=== PATIENT | male | born 1970 | race Caucasian/White ===

== ENCOUNTER 2017-05-13 19:28 | Inpatient (IN) | payer BC, OTHER ==
[~2017-05-13] VITALS: Ht 172.7 cm; Wt 121.2 kg
[~2017-05-13 19:28] MED LIST: CLTP PO; MAGN400T6 PO; OXYC-57 PO
--- NOTE | 2017-05-13 20:35 | EMERGENCY ROOM VISIT NOTE ---
History Report prepared by Kandice: Hui Nixon Under the Supervision of: Dr. Kena Gonzalez D.O. First contact with patient: 19:56 Chief Complaint: FLU LIKE SX Stated Complaint: FATIGUE,FEVER,HEADACHE History of Present Illness The patient is a 47 year old male who presents to the Emergency Room with complaints of a persistent illness that began four days ago. He currently rates his discomfort as a 2/10 in severity. The patient reports that for the past several decades he has been dealing with electrolyte problems. He states that he has followed with doctors and reports a partial diagnosis of probable [place]'s Disease. The patient states that he has been treating the disease with magnesium and calcium supplements, noting that his problems gradually improved. The patient states that on Saturday he was outside in the sun for 30- 60 minutes and states that he started feeling ill. He states that he developed weakness, a headache, and diffuse muscle aches. The patient states that he attributed his symptoms to a mismanagement of his electrolytes. He states that he still noticed a headache and neck stiffness. The patient states that he noticed a low-grade fever of 99.9 degrees Fahrenheit. He reports that Saturday his fever increased to 101.7 degrees Fahrenheit, but noticed an improvement in his electrolytes. The patient states that today he noticed his fever climb to 101.9 degrees Fahrenheit and then 102.8 degrees Fahrenheit just prior to arrival. He states that his muscle aches have improved, but additionally notes a tickle in his throat, cough, right ear ache, nausea, and diarrhea today. The patient states that he has had multiple recent mosquito bites. He states that he had a tick bite two years ago, but denies any recently. The patient denies any sick contacts. He denies any rash, urinary symptoms, vomiting, melena, or hematochezia. Source of History: patient Onset: four days ago Position: other (global) Symptom Intensity: 2/10 Quality: other (illness) Timing: other (persistent) Associated Symptoms: + fevers, + cough, + nausea, + diarrhea, + weakness, No vomiting, No melena, No hematochezia, No urinary symptoms Note: Associated Symptoms: tickle in throat, right ear ache, muscle aches, neck stiffness Review of Systems See HPI for pertinent positives & negatives. A total of 10 systems reviewed and were otherwise negative. Past Medical & Surgical Medical Problems: (1) Hypertension (2) Osteoporosis (3) SIRS (systemic inflammatory response syndrome) Surgical Problems: (1) H/O wisdom tooth extraction (2) History of appendectomy Family History Diabetes mellitus Gallbladder disease Heart disease Lung disease Social History Smoking Status: Never Smoker Smokeless Tobacco Use: No Marital Status: single Current/Historical Medications Scheduled Calcium Carbonate-Cholecalcife (Calcium 600+D3 600-800 mg-Unit), 1 TAB PO DAILY Magnesium Oxide (Mg Supplement (Magnesium), 250 MG PO BID Allergies Coded Allergies: Atenolol (Verified Adverse Reaction, Intermediate, Weight loss, difficulty breathing, 05/13/17) Physical Exam Vital Signs Date Time Temp Pulse Resp B/P (MAP) Pulse Ox O2 Delivery O2 Flow Rate FiO2 05/14/17 02:12 37.4 05/14/17 02:01 168/113 05/14/17 01:56 104 23 96 05/14/17 01:41 99 16 96 05/14/17 01:26 107 17 98 05/14/17 01:11 102 21 05/14/17 01:02 160/96 05/14/17 00:56 101 18 95 05/14/17 00:51 102 17 95 05/14/17 00:36 104 16 96 05/14/17 00:34 106 05/14/17 00:31 170/108 05/14/17 00:21 106 25 96 05/14/17 00:06 105 16 97 05/14/17 00:01 177/107 05/13/17 23:51 112 19 180/110 95 05/13/17 23:30 185/114 05/13/17 23:26 120 19 185/114 95 Room Air 05/13/17 23:21 117 20 96 05/13/17 23:06 118 29 96 05/13/17 23:01 211/117 05/13/17 22:51 117 27 99 05/13/17 22:36 114 25 99 05/13/17 22:31 204/117 05/13/17 22:21 114 38 100 05/13/17 22:09 39.3 05/13/17 22:06 114 25 99 05/13/17 22:01 199/118 05/13/17 21:58 112 29 100 05/13/17 21:35 116 20 191/115 97 Room Air 05/13/17 21:34 191/115 05/13/17 20:59 120 05/13/17 20:59 119 20 190/110 97 Room Air 05/13/17 20:57 190/110 05/13/17 19:52 39.1 133 20 205/110 94 Room Air Physical Exam GENERAL: alert, well appearing, well nourished, no distress, non-toxic EYE EXAM: normal conjunctiva, PERRL and EOM's grossly intact OROPHARYNX: no exudate, no erythema, lips, buccal mucosa, and tongue normal and mucous membranes are really dry EARS: Small amount of fluid behind right TM and partial obstruction of TM by cerumen. NECK: supple, no nuchal rigidity, no adenopathy, non-tender LUNGS: Clear to auscultation. Normal chest wall mechanics HEART: no murmurs, S1 normal and S2 normal ABDOMEN: abdomen soft, non-tender, normo-active bowel sounds, no masses, no rebound or guarding. BACK: Back is symmetrical on inspection and there is no deformity, no midline tenderness, no CVA tenderness. SKIN: Scattered area of excoriation consistent with insect bites and scratching. UPPER EXTREMITIES: upper extremities are grossly normal. LOWER EXTREMITIES: No pitting edema. NEURO EXAM: Normal sensorium, cranial nerves II-XII grossly intact, normal speech, no gross weakness of arms, no gross weakness of legs. Medical Decision & Procedures ER Provider Diagnostic Interpretation: Radiology results have been interpreted by the radiologist and reviewed by me. CHEST 2 VIEWS ROUTINE HISTORY: cough, fever COMPARISON: None. FINDINGS: The lungs are clear. Cardiac silhouette is normal in size. No pleural effusions. No pneumothorax. IMPRESSION: No acute process. Electronically signed by: Adama Asencio M.D. 05/13/2017 9:30 PM Dictated Date/Time: 05/13/2017 9:[address] ABDOMEN AND PELVIS: Outside infiltration of the liver. The gallbladder, pancreas, adrenal glands, spleen, and kidneys show no substantial abnormality. No dilated loop of bowel. Remainder of examination shows no evidence of an acute inflammatory process. Radiologist: Nazario Matta MD Study ready at 2354 and initial results transmitted at 0004 Laboratory Results 05/13/17 20:48 Red Blood Count 5.77, Mean Corpuscular Volume 86.7, Mean Corpuscular Hemoglobin 29.1, Mean Corpuscular Hemoglobin Concent 33.6, Mean Platelet Volume 9.0, Neutrophils (%) (Auto) 85.1, Lymphocytes (%) (Auto) 9.6, Monocytes (%) (Auto) 4.7, Eosinophils (%) (Auto) 0.0, Basophils (%) (Auto) 0.3, Neutrophils # (Auto) 6.18, Lymphocytes # (Auto) 0.70, Monocytes # (Auto) 0.34, Eosinophils # (Auto) 0.00, Basophils # (Auto) 0.02 05/13/17 20:48 Test 05/13/17 20:48 05/13/17 20:58 05/13/17 21:25 05/13/17 23:55 White Blood Count 7.26 K/uL (4.8-10.8) Red Blood Count 5.77 M/uL (4.7-6.1) Hemoglobin 16.8 g/dL (14.0-18.0) Hematocrit 50.0 % (42-52) Mean Corpuscular Volume 86.7 fL (80-100) Mean Corpuscular Hemoglobin 29.1 pg (25-34) Mean Corpuscular Hemoglobin Concent 33.6 g/dl (32-36) Platelet Count 194 K/uL (130-400) Mean Platelet Volume 9.0 fL (7.4-10.4) Neutrophils (%) (Auto) 85.1 % Lymphocytes (%) (Auto) 9.6 % Monocytes (%) (Auto) 4.7 % Eosinophils (%) (Auto) 0.0 % Basophils (%) (Auto) 0.3 % Neutrophils # (Auto) 6.18 K/uL (1.4-6.5) Lymphocytes # (Auto) 0.70 K/uL (1.2-3.4) Monocytes # (Auto) 0.34 K/uL (0.11-0.59) Eosinophils # (Auto) 0.00 K/uL (0-0.5) Basophils # (Auto) 0.02 K/uL (0-0.2) RDW Standard Deviation 40.2 fL (36.4-46.3) RDW Coefficient of Variation 12.6 % (11.5-14.5) Immature Granulocyte % (Auto) 0.3 % Immature Granulocyte # (Auto) 0.02 K/uL (0.00-0.02) Prothrombin Time 11.2 SECONDS (9.0-12.0) Prothromb Time International Ratio 1.0 (0.9-1.1) Anion Gap 9.0 mmol/L (3-11) Est Creatinine Clear Calc Drug Dose 96.0 ml/min Estimated GFR () 83.0 Estimated GFR (Non- 71.6 BUN/Creatinine Ratio 10.3 (10-20) Lactic Acid Level 1.0 mmol/L (0.4-2.0) Calcium Level 8.8 mg/dl (8.5-10.1) Magnesium Level 2.3 mg/dl (1.8-2.4) Total Bilirubin 1.3 mg/dl (0.2-1) Aspartate Amino Transf (AST/SGOT) 34 U/L (15-37) Alanine Aminotransferase (ALT/SGPT) 51 U/L (12-78) Alkaline Phosphatase 81 U/L (45-117) Total Creatine Kinase 116 U/L (39-308) Troponin I < 0.015 ng/ml (0-0.045) Total Protein 7.9 gm/dl (6.4-8.2) Albumin 3.8 gm/dl (3.4-5.0) Globulin 4.1 gm/dl (2.5-4.0) Albumin/Globulin Ratio 0.9 (0.9-2) Lipase 109 U/L (73-393) Thyroid Stimulating Hormone (TSH) 2.010 uIu/ml (0.300-4.500) Monoscreen NEG (NEG) Lyme Disease IgG Antibody POS (NEG) Influenza Type A Antigen Neg for Influ A (NEG) Influenza Type B Antigen Neg for Influ B (NEG) Urine Color DK YELLOW Urine Appearance CLEAR (CLEAR) Urine pH 5.5 (4.5-7.5) Urine Specific [place] 1.019 (1.000-1.030) Urine Protein TRACE (NEG) Urine Glucose (UA) NEG (NEG) Urine Ketones 3+ (NEG) Urine Occult Blood NEG (NEG) Urine Nitrite NEG (NEG) Urine Bilirubin NEG (NEG) Urine Urobilinogen NEG (NEG) Urine Leukocyte Esterase NEG (NEG) Urine WBC (Auto) 1-5 /hpf (0-5) Urine RBC (Auto) 0-4 /hpf (0-4) Urine Hyaline Casts (Auto) 0 /lpf (0-5) Urine Epithelial Cells (Auto) 0-5 /lpf (0-5) Urine Bacteria (Auto) NEG (NEG) Laboratory results per my review. Medications Administered Medications (Trade) Dose Ordered Sig/Bennett Route Start Time Stop Time Status Last Admin Dose Admin Sodium Chloride 1,000 ml @ 999 mls/hr Q1H1M STAT IV 05/13/17 20:36 05/13/17 21:36 DC 05/13/17 20:58 999 MLS/HR Sodium Chloride 1,000 ml @ 999 mls/hr Q1H1M STAT IV 05/13/17 21:41 05/13/17 22:41 DC 05/13/17 22:07 999 MLS/HR Ketorolac Tromethamine (Toradol Inj) 30 mg NOW STAT IV 05/13/17 22:24 05/13/17 22:26 DC 05/13/17 22:57 30 MG Acetaminophen (Tylenol Tab) 1,000 mg NOW STAT PO 05/13/17 22:24 05/13/17 22:26 DC 05/13/17 22:56 1,000 MG Sodium Chloride 1,000 ml @ 999 mls/hr Q1H1M STAT IV 05/13/17 23:18 05/14/17 00:18 DC 05/13/17 23:18 999 MLS/HR Doxycycline Hyclate (Vibramycin Cap) 100 mg ONE ONCE PO 05/14/17 01:00 05/14/17 01:01 DC 05/14/17 01:26 100 MG ECG Indication: weakness, other (fever) Rate (beats per minute): 116 Rhythm: sinus tachycardia Findings: no acute ischemic change, other (normal axis, normal intervals) ED Course 2021: The patient was evaluated in room B9. A complete history and physical exam was performed. 2035: Ordered Sodium Chloride 1000 ml @ 999 mls/hr IV. 2140: Ordered Sodium Chloride 1000 ml @ 999 mls/hr IV. 2205: I reevaluated the patient and he still has a fever and is still tachycardic. 4: Ordered Tylenol Tab 1000 mg PO, Toradol Inj 30 mg IV. 2314: I reevaluated the patient and he is still tachycardic and increasing abdominal pain. I updated the patient at this time on results. He will have a CT scan. Patient states he was previously told that he had borderline high blood pressure and his family doctor wanted to start him on medication. He refused and since losing his insurance had not followed up with the family doctor since. 2318: Ordered Sodium Chloride 1000 ml @ 999 mls/hr IV. 0000: I reevaluated the patient and he is resting. I discussed the exam findings with him and I discussed the treatment plan. He verbalized complete understanding and agreement. He is going to be evaluated for further treatment. 0058: I discussed the patients case with LISSETH Call. He will evaluate the patient for further treatment. 0100: Ordered Vibramycin Cap 100 mg PO. Medical Decision Differential diagnosis: Etiologies such as viral syndrome, otitis, pharyngitis, pneumonia, influenza, meningitis, urinary tract infection, sepsis, bacteremia, as well as others were entertained. Medication Reconciliation: I attest that I have personally reviewed the patient' s current medication list. Blood pressure screening: Patient was found to have an elevated blood pressure and was referred to their primary doctor for recheck and further treatment. Patient with persistent tachycardia and hypertension despite 3 L of IV fluids. Patient states myalgias/arthralgias are slightly improved, however still not feeling well. No evidence of bacteremia/sepsis, however given fever and tachycardia, cultures added as a precaution. Patient likely exposed to Lyme or had live infection some point, although he is not aware of this. Patient will be started on doxycycline as a precaution area given complaints of nausea and mild abdominal pain imaging of the abdomen and pelvis added which did not reveal any acute pathology. Clinically patient's level dehydration was improved following IV fluids and patient was tolerating sips of by mouth. Patient with no other focal findings, no neuro deficits, did not feel patient warranted LP for meningitis/encephalitis. No pulmonary pathology or urinary infection found. Doubt bacteremia/sepsis. Consults Time Called: 002 Consulting Physician: LISSETH Call I discussed the patients case with LISSETH Call. He will evaluate the patient for further treatment. Impression Primary Impression: Dehydration Additional Impressions: Tachycardia Hypertension Myalgia SIRS (systemic inflammatory response syndrome) Scribe Attestation The scribe's documentation has been prepared under my direction and personally reviewed by me in its entirety. I confirm that the note above accurately reflects all work, treatment, procedures, and medical decision making performed by me. Departure Information Dispostion Being Evaluated By Hospitalist Referrals Iggy Leblanc Jr,D.O. (PCP) Problem Qualifiers Additional Impressions: Hypertension Hypertension type: essential hypertension Qualified Codes: I10 - Essential ( primary) hypertension
[2017-05-13] MEDS ORDERED: SODIUM CHLORIDE 0.9% 1000ML 1,000 ML IV STA ×3 (20:36→23:18)
[2017-05-13] MEDS ORDERED: MAGN250T8 PO (20:53)
[2017-05-13] MEDS ORDERED: CALC-449 PO (20:53)
[2017-05-13 21:02] LABS: BASO % 0.3 %; BASO ABS # 0.02 K/uL (0-0.2); COMPLETE YES; IG% 0.3 %; LYMPH % 9.6 %; MEAN CELL VOLUME 86.7 fL (80-100); MEAN CORPUSCULAR HEMOGLOBIN 29.1 pg (25-34); MEAN CORPUSCULAR HGB CONC 33.6 g/dl (32-36); MONO % 4.7 %; NEUT % 85.1 %; PLATELET COUNT 194 K/uL (130-400); RED BLOOD COUNT 5.77 M/uL (4.7-6.1); WHITE BLOOD COUNT 7.26 K/uL (4.8-10.8)
[2017-05-13 21:19] LABS: ALT/SGPT 51 U/L (12-78); BLOOD UREA NITROGEN 12 mg/dl (7-18); BUN/CREATININE RATIO 10.3 (10-20); CALCIUM 8.8 mg/dl (8.5-10.1); CARBON DIOXIDE 25 mmol/L (21-32); CHLORIDE 101 mmol/L (98-107); GLUCOSE 91 mg/dl (70-99); MAGNESIUM 2.3 mg/dl (1.8-2.4); POTASSIUM 4.1 mmol/L (3.5-5.1); SODIUM 135 mmol/L (136-145)
[2017-05-13 21:23] LABS: PROTHROMBIN TIME (PATIENT) 11.2 SECONDS (9.0-12.0)
[2017-05-13 21:30] LABS: ALB/GLOB RATIO 0.9 (0.9-2); ALKALINE PHOSPHATASE 81 U/L (45-117); AST/SGOT 34 U/L (15-37)
--- NOTE | 2017-05-13 21:32 | DIAGNOSTIC IMAGING REPORT ---
CHEST 2 VIEWS ROUTINE HISTORY: cough, fever COMPARISON: None. FINDINGS: The lungs are clear. Cardiac silhouette is normal in size. No pleural effusions. No pneumothorax. IMPRESSION: No acute process. Electronically signed by: Adama Asencio M.D. 05/13/2017 9:30 PM Dictated Date/Time: 05/13/2017 9:28 PM
[2017-05-13] MEDS ORDERED: ACETAMINOPHEN 500 MG TAB PO STA (22:24)
[2017-05-13] MEDS ORDERED: KETOROLAC TROMETHAMINE 30 MG/ML VIAL IV STA (22:24)
[2017-05-13 22:44] LABS: LYME DISEASE AB IGM NEG (NEG)
[2017-05-13 22:47] LABS: LYME DISEASE AB IGG POS (NEG)
[2017-05-13] MEDS ORDERED: OPTIRAY 320 IV PRN (23:30)
[2017-05-14] VITALS (13 sets, daily range): BP systolic 120–165; BP diastolic 61–113; PULSE 80–121; TEMP 37.1–39.4; O2SAT 91–100; Ht 172.7 cm; Wt 121.2 kg
[2017-05-14 00:16] LABS: URINE APPEARANCE CLEAR (CLEAR); URINE BILIRUBIN NEG (NEG); URINE COLOR DK YELLOW; URINE EPITHELIAL CELL AUTO 0-5 /lpf (0-5); URINE NITRITE NEG (NEG); URINE PH 5.5 (4.5-7.5); URINE SPECIFIC GRAVITY 1.019 (1.000-1.030); UROBILINOGEN NEG (NEG); ZZUR CULT IF INDIC CLEAN CATCH NO
[2017-05-14 00:21] LABS: MANUAL MICROSCOPIC REQUIRED? NO; REVIEW REQ? NO
[2017-05-14] MEDS ORDERED: DOXYCYCLINE HYCLATE 100 MG CAP PO ONE (01:00)
[2017-05-14] MEDS ORDERED: ONDANSETRON INJ 2 MG/ML 2 ML VIAL IV PRN (02:45)
[2017-05-14] MEDS ORDERED: METOPROLOL TARTRATE 1 MG/ML VIAL IV PRN (02:45)
--- NOTE | 2017-05-14 03:20 | History and Physical ---
History & Physical Date & Time of Service: May 14, 2017 at 03:04 Chief Complaint: Fatigue,Fever,Headache Primary Care Physician: Iggy Leblanc Jr, D.O. History of Present Illness Source: patient The patient is a 47-year-old male who presents to the emergency department with complaint of generalized weakness, muscle aches, and headache that began about 4 days ago when he was outside in the sun for about 30-60 minutes. His past medical history includes some question of a "partial diagnosis of [place] disease". He reports it is very sensitive to electrolyte changes and tries to watch himself closely with taking magnesium and calcium supplements. He decided come to emergency department today because he had a temperature which initially was 99.9, then 1 day ago increased 101.7, and then today increased to 101.9 and then 102.8 just prior to arrival. Today he reports the development of additional symptoms including a tickle in his throat, and irritant cough, a right earache, nausea and loose stools. He reports having multiple mosquito bites 4 days ago, and has had a tick bite in the past. He has not had any recent travel and denies any sick contacts. Past Medical/Surgical History Medical Problems: (1) Hypertension Status: Chronic (2) Osteoporosis Status: Chronic Surgical Problems: (1) H/O wisdom tooth extraction Status: Resolved (2) History of appendectomy Status: Resolved Family History Diabetes mellitus Gallbladder disease Heart disease Lung disease Social History Smoking Status: Never Smoker Smokeless Tobacco Use: No Alcohol Use: none Drug Use: none Marital Status: single Multi-Drug Resistant Organisms History of MDRO: No Allergies Coded Allergies: Atenolol (Verified Adverse Reaction, Intermediate, Weight loss, difficulty breathing, 05/13/17) Home Medications Scheduled Calcium Carbonate-Cholecalcife (Calcium 600+D3 600-800 mg-Unit), 1 TAB PO DAILY Magnesium Oxide (Mg Supplement (Magnesium), 250 MG PO BID Review of Systems The patient denies chest pain, palpitations, shortness of breath, lower extremity swelling, weight change, vomiting, abdominal pain, pelvic pain, blood in urine or stool, dysuria, urinary frequency or urgency, memory loss, rash, abnormal bruising or bleeding, imbalance, focal weakness, numbness or tingling in arms or legs. The review of systems is otherwise negative other than for that already noted above, and at least 10 systems have been reviewed. Physical Exam Vital Signs Date Time Temp Pulse Resp B/P (MAP) Pulse Ox O2 Delivery O2 Flow Rate FiO2 05/14/17 02:12 37.4 05/14/17 00:51 102 17 95 05/14/17 00:36 104 16 96 05/14/17 00:34 106 05/14/17 00:31 170/108 05/14/17 00:21 106 25 96 05/14/17 00:06 105 16 97 05/14/17 00:01 177/107 05/13/17 23:51 112 19 180/110 95 05/13/17 23:30 185/114 05/13/17 23:26 120 19 185/114 95 Room Air 05/13/17 23:21 117 20 96 05/13/17 23:06 118 29 96 05/13/17 23:01 211/117 05/13/17 22:51 117 27 99 05/13/17 22:36 114 25 99 05/13/17 22:31 204/117 05/13/17 22:21 114 38 100 05/13/17 22:09 39.3 05/13/17 22:06 114 25 99 05/13/17 22:01 199/118 05/13/17 21:58 112 29 100 05/13/17 21:35 116 20 191/115 97 Room Air 05/13/17 21:34 191/115 05/13/17 20:59 120 05/13/17 20:59 119 20 190/110 97 Room Air 05/13/17 20:57 190/110 05/13/17 19:52 39.1 133 20 205/110 94 Room Air The patient is awake, well-developed and adequately nourished, alert and oriented 3, normocephalic and atraumatic, lying in bed and in no acute distress. HEENT--PERRL, EOMI, mucous membranes and oropharynx normal. Neck--supple, no JVD or bruits, thyroid normal, trachea midline, no adenopathy. Heart--normal S1 and S2, no extra beats, no murmurs, rubs or gallops. Lungs--clear bilaterally with good air movement, no respiratory distress, no accessory muscle use. Abdomen--normal bowel sounds and soft, nontender and nondistended, no hernias or masses, no organomegaly. Extremities--no cyanosis, clubbing or edema. There are good distal pulses b/l. Dermatologic--normal skin turgor, normal color, warm and dry, no abnormal lymph nodes. He has a number of 5-10 mm oval erythematous areas lower extremities and upper extremities. Neurologic--cranial nerves II through XII grossly intact. Rheumatologic--normal range of motion, nontender, muscles and joints. Psychiatric--appears anxious. Diagnostics Laboratory Results Results Past 24 Hours Test 05/13/17 20:48 05/13/17 20:58 05/13/17 21:25 05/13/17 23:55 Range/Units White Blood Count 7.26 4.8-10.8 K/uL Red Blood Count 5.77 4.7-6.1 M/uL Hemoglobin 16.8 14.0-18.0 g/dL Hematocrit 50.0 42-52 % Mean Corpuscular Volume 86.7 80-100 fL Mean Corpuscular Hemoglobin 29.1 25-34 pg Mean Corpuscular Hemoglobin Concent 33.6 32-36 g/dl Platelet Count 194 130-400 K/uL Mean Platelet Volume 9.0 7.4-10.4 fL Neutrophils (%) (Auto) 85.1 % Lymphocytes (%) (Auto) 9.6 % Monocytes (%) (Auto) 4.7 % Eosinophils (%) (Auto) 0.0 % Basophils (%) (Auto) 0.3 % Neutrophils # (Auto) 6.18 1.4-6.5 K/uL Lymphocytes # (Auto) 0.70 1.2-3.4 K/uL Monocytes # (Auto) 0.34 0.11-0.59 K/uL Eosinophils # (Auto) 0.00 0-0.5 K/uL Basophils # (Auto) 0.02 0-0.2 K/uL RDW Standard Deviation 40.2 36.4-46.3 fL RDW Coefficient of Variation 12.6 11.5-14.5 % Immature Granulocyte % (Auto) 0.3 % Immature Granulocyte # (Auto) 0.02 0.00-0.02 K/uL Prothrombin Time 11.2 9.0-12.0 SECONDS Prothromb Time International Ratio 1.0 0.9-1.1 Sodium Level 135 136-145 mmol/L Potassium Level 4.1 3.5-5.1 mmol/L Chloride Level 101 98-107 mmol/L Carbon Dioxide Level 25 21-32 mmol/L Anion Gap 9.0 3-11 mmol/L Blood Urea Nitrogen 12 7-18 mg/dl Creatinine 1.20 0.60-1.40 mg/dl Est Creatinine Clear Calc Drug Dose 96.0 ml/min Estimated GFR () 83.0 Estimated GFR (Non- 71.6 BUN/Creatinine Ratio 10.3 10-20 Random Glucose 91 70-99 mg/dl Lactic Acid Level 1.0 0.4-2.0 mmol/L Calcium Level 8.8 8.5-10.1 mg/dl Magnesium Level 2.3 1.8-2.4 mg/dl Total Bilirubin 1.3 0.2-1 mg/dl Aspartate Amino Transf (AST/SGOT) 34 15-37 U/L Alanine Aminotransferase (ALT/SGPT) 51 12-78 U/L Alkaline Phosphatase 81 45-117 U/L Total Creatine Kinase 116 39-308 U/L Troponin I < 0.015 0-0.045 ng/ml Total Protein 7.9 6.4-8.2 gm/dl Albumin 3.8 3.4-5.0 gm/dl Globulin 4.1 2.5-4.0 gm/dl Albumin/Globulin Ratio 0.9 0.9-2 Lipase 109 73-393 U/L Thyroid Stimulating Hormone (TSH) 2.010 0.300-4.500 uIu/ml Monoscreen NEG NEG Lyme Disease IgG Antibody POS NEG Lyme Disease IgM Antibody NEG NEG Influenza Type A Antigen Neg for Influ A NEG Influenza Type B Antigen Neg for Influ B NEG Urine Color DK YELLOW Urine Appearance CLEAR CLEAR Urine pH 5.5 4.5-7.5 Urine Specific [place] 1.019 1.000-1.030 Urine Protein TRACE NEG Urine Glucose (UA) NEG NEG Urine Ketones 3+ NEG Urine Occult Blood NEG NEG Urine Nitrite NEG NEG Urine Bilirubin NEG NEG Urine Urobilinogen NEG NEG Urine Leukocyte Esterase NEG NEG Urine WBC (Auto) 1-5 0-5 /hpf Urine RBC (Auto) 0-4 0-4 /hpf Urine Hyaline Casts (Auto) 0 0-5 /lpf Urine Epithelial Cells (Auto) 0-5 0-5 /lpf Urine Bacteria (Auto) NEG NEG Test 6/27/17 02:37 Range/Units Microbiology Results 05/14/17 Blood Culture, Received Pending 05/14/17 Blood Culture, Received Pending Diagnostic Radiology Patient Name: MARYELLEN HICKMAN Unit Number: [id number] Dictated: 05/[id number] Transcribed: 05/13/172127 PA Printed Date/Time: [~ rep prt dt]/[~ rep prt tm] [~ rep ct labl] - [~ rep ct ivnm] [facility] [place] [address] Dictated: 05/[id number] Transcribed: 05/13/172127 PAJ Printed Date/Time: [~ rep prt dt]/[~ rep prt tm] [~ rep ct labl] - [~ rep ct ivnm] CHEST 2 VIEWS ROUTINE HISTORY: cough, fever COMPARISON: None. FINDINGS: The lungs are clear. Cardiac silhouette is normal in size. No pleural effusions. No pneumothorax. IMPRESSION: No acute process. Electronically signed by: Adama Asencio M.D. 05/13/2017 9:30 PM Dictated Date/Time: 05/13/2017 9:28 PM The status of this report is Signed. Draft = Not yet reviewed or approved by Radiologist. Signed = Reviewed and approved by Radiologist. <AttendingPhy></AttendingPhy> <FamilyPhy>Iggy Leblanc Jr,D.O.</FamilyPhy> < PrimaryPhy>Iggy Leblanc Jr,D.O.</PrimaryPhy> <UnitNumber>[id number]</ UnitNumber> <VisitNumber>[id number]</VisitNumber> <PatientName>MARYELLEN HICKMAN</ PatientName> <DateOfBirth>1970</DateOfBirth> <Location>[facility]</Location> < ServiceDate>05/13/17</ServiceDate> <MNE>ESINDI</MNE> <OrderingPhy>Kena Gonzalez DO</OrderingPhy> <OrderingPhyMNE>f rep ord dr mcclure</OrderingPhyMNE> < DictatingPhyMNE>f rep dict dr mcclure</DictatingPhyMNE> <CCListMNE>f rep ct danellee</ CCListMNE> <AdmittingPhyMNE>f pt admit dr mcclure</AdmittingPhyMNE> <AttendingPhyMNE >f pt attend dr mcclure</AttendingPhyMNE> <ConsultingPhyMNE>f pt consult dr mcclure</ConsultingPhyMNE> <FamilyPhyMNE>f pt fam dr mcclure</FamilyPhyMNE> <OtherPhyMNE>f pt other dr mcclure</OtherPhyMNE> < PrimaryPhyMNE>f pt prim care dr mcclure</PrimaryPhyMNE> <ReferringPhyMNE>f pt referring dr mcclure</ReferringPhyMNE> EKG EKG shows sinus tachycardia 116 bpm, no change compared to 10/16/2007 Impression Assessment and Plan SIRS/Lyme IgG positive/ temperature 39.3/dehydration--the patient will be admitted to the hospital. Have placed on normal saline with potassium chloride 20 mEq at 200 mils per hour. We will send additional laboratories including for : Ehrlichiosis, EBV, CMV, parvovirus, coxsackie B virus and West Nile virus. There is a question of a partial diagnosis of [place]'s disease, but we'll hold on any stress dose steroids at this time. We'll place on ceftriaxone 1 g IV daily. Sinus tachycardia--address primarily with aggressive fluid rehydration. He reports that he already is feeling better with 2 L of fluid given in the emergency department. We will have available Lopressor 5 mg IV every 4 hours when necessary systolic blood pressure greater than 160. Level of Care Telemetry Advanced Directives Existing Advance Directive: No Existing Living Will: No Existing Power of Relay Man: No Resuscitation Status FULL RESUSCITATION VTE Prophylaxis VTE Risk Assessment Done? Y/N: Yes Risk Level: Moderate Given or contraindicated: SCD's
[2017-05-14] MEDS ORDERED: CEFTRIAXONE SOD INJ 1 GM in DEXTROSE 5% ADD-VANTAGE 50ML 50 ML IV SCH (04:00)
[2017-05-14] MEDS: NSS + 20MEQ KCL 1000ML 1,000 ML IV SCH ×3 (04:52→16:52)
[2017-05-14] MEDS: ACETAMINOPHEN 325 MG TAB PO PRN ×2 (05:03→16:52)
--- NOTE | 2017-05-14 08:08 | DIAGNOSTIC IMAGING REPORT ---
CT SCAN OF THE ABDOMEN AND PELVIS WITH IV CONTRAST CLINICAL HISTORY: Generalized abdominal pain. Fever. COMPARISON STUDY: No priors. TECHNIQUE: Following the IV administration of 117 cc of Optiray 320, CT scan of the abdomen and pelvis is performed from the lung bases to the proximal femora. Images are reviewed in the axial, sagittal, and coronal planes. IV contrast was administered without complication. Automated dose control exposure was utilized. CT DOSE: 1247.37 mGy.cm FINDINGS: Lung bases: The heart is normal in size and without pericardial effusion. The lung bases are clear noting bibasilar atelectasis. Liver: The contrast-enhanced liver is enlarged, measuring 21.2 cm in length. The liver demonstrates diffusely diminished attenuation consistent with hepatic steatosis. Fatty sparing is seen adjacent to gallbladder fossa. There is no intrahepatic biliary ductal dilatation. The hepatic veins and portal veins are patent. Gallbladder: Unremarkable. Spleen: Normal in size and attenuation. Pancreas: Unremarkable. Adrenal glands: Unremarkable. Kidneys: The contrast enhanced kidneys are normal in size and without hydronephrosis. The kidneys enhance symmetrically. Abdominal vasculature: The abdominal aorta is normal in course and caliber. Bowel: The small bowel and colon are normal in course and caliber. The appendix is not identified and reported surgically absent. Peritoneum: There is no intraperitoneal free air or abdominal ascites. There is a small fat-containing umbilical hernia. Lymphadenopathy: None. Pelvic viscera: The bladder, prostate, and seminal vesicles are normal as visualized. Skeletal structures: No lytic or blastic lesions are seen. IMPRESSION: 1. There are no acute infectious or inflammatory findings in the abdomen or pelvis. 2. Hepatomegaly and hepatic steatosis. Electronically signed by: Madhu Miranda M.D. 05/14/2017 8:06 AM Dictated Date/Time: 05/14/2017 8:03 AM
[2017-05-14] MEDS: CALCIUM 600MG + VIT D 400 IU TAB PO SCH (08:16)
[2017-05-14] MEDS: MAGNESIUM OXIDE 400 MG TAB PO SCH ×2 (08:16→21:05)
[2017-05-14] MEDS ORDERED: SULFAMETHOXAZOLE/TRIMETHOPRIM DS 800/160MG TAB PO SCH (09:00)
[2017-05-14] MEDS: DOXYCYCLINE HYCLATE 100 MG CAP PO SCH ×2 (11:21→21:06)
--- NOTE | 2017-05-14 12:48 | Hospitalist Progress Note ---
Hospitalist Progress Note Date of Service May 14, 2017. (Adriana Milton ., CINDYC) Subjective Pt evaluation today including: conversation w/ patient, physical exam, chart review, lab review, review of studies, review of inpatient medication list Voiding: no voiding problems, no incontinence Patient states he is feeling OK- minimal improvement since admission. +muscle/joint aches. +fever +palpations. Multiple lesions noted to bilateral lower/upper extremities- states these are mosquito bites that he has been scratching at excessively. Patient denies any chills, sweats, lightheadedness, dizziness, headache, vision changes, CP, edema, SOB, wheezing, cough, abdominal pain, nausea, vomiting, diarrhea, urinary symptoms, melena, numbness/tingling, weakness, anxiety/ depression, active bleeding, or new skin discoloration. (Adriana Milton ., DEMARCO-C) Medications Current Inpatient Medications Medications (Trade) Dose Ordered Sig/Bennett Route Start Time Stop Time Status Last Admin Dose Admin Ioversol (Optiray 320) 100 ml UD PRN IV 05/13/17 23:30 05/17/17 23:29 Metoprolol Tartrate (Lopressor Iv) 5 mg Q4 PRN IV 05/14/17 02:45 06/13/17 02:44 Ondansetron HCl (Zofran Inj) 4 mg Q6H PRN IV 05/14/17 02:45 06/13/17 02:44 Potassium Chloride/Sodium Chloride 1,000 ml @ 200 mls/hr Q5H IV 05/14/17 04:30 06/13/17 04:29 05/14/17 10:53 200 MLS/HR Acetaminophen (Tylenol Tab) 650 mg Q4H PRN PO 05/14/17 02:45 06/13/17 02:44 05/14/17 05:03 650 MG Calcium/Vitamin D (Caltrate Plus Tab) 1 tab DAILY PO 05/14/17 09:00 06/13/17 08:59 05/14/17 08:16 1 TAB Magnesium Oxide (Mag-Ox Tab) 200 mg BID PO 05/14/17 09:00 06/13/17 08:59 05/14/17 08:16 200 MG Trimethoprim/ Sulfamethoxazole (Septra Ds 800/ 160MG Tab) 1 tab Q12 PO 05/14/17 09:00 05/24/17 08:59 05/14/17 08:16 1 TAB Doxycycline Hyclate (Vibramycin Cap) 100 mg BID PO 05/14/17 09:00 05/24/17 08:59 05/14/17 11:21 100 MG (Adriana Milton, ONESIMO) Objective Vital Signs Date Time Temp Pulse Resp B/P (MAP) Pulse Ox O2 Delivery O2 Flow Rate FiO2 05/14/17 12:12 39.1 121 20 165/92 (116) 96 Room Air 05/14/17 12:00 96 Room Air 05/14/17 09:11 39.3 05/14/17 08:19 37.8 05/14/17 08:00 95 Room Air 05/14/17 07:07 39.1 116 20 161/87 (111) 95 Room Air 05/14/17 03:54 37.9 113 20 154/113 98 Room Air 05/14/17 03:45 100 Room Air 05/14/17 03:31 106 19 100 05/14/17 03:16 105 25 177/94 98 05/14/17 03:16 103 177/94 99 05/14/17 03:11 102 24 99 05/14/17 02:12 37.4 05/14/17 02:01 168/113 05/14/17 01:56 104 23 96 05/14/17 01:41 99 16 96 05/14/17 01:26 107 17 98 05/14/17 01:11 102 21 05/14/17 01:02 160/96 05/14/17 00:56 101 18 95 05/14/17 00:51 102 17 95 05/14/17 00:36 104 16 96 05/14/17 00:34 106 05/14/17 00:31 170/108 05/14/17 00:21 106 25 96 05/14/17 00:06 105 16 97 05/14/17 00:01 177/107 05/13/17 23:51 112 19 180/110 95 05/13/17 23:30 185/114 05/13/17 23:26 120 19 185/114 95 Room Air 05/13/17 23:21 117 20 96 05/13/17 23:06 118 29 96 05/13/17 23:01 211/117 05/13/17 22:51 117 27 99 05/13/17 22:36 114 25 99 05/13/17 22:31 204/117 05/13/17 22:21 114 38 100 05/13/17 22:09 39.3 05/13/17 22:06 114 25 99 05/13/17 22:01 199/118 05/13/17 21:58 112 29 100 05/13/17 21:35 116 20 191/115 97 Room Air 05/13/17 21:34 191/115 05/13/17 20:59 120 05/13/17 20:59 119 20 190/110 97 Room Air 05/13/17 20:57 190/110 05/13/17 19:52 39.1 133 20 205/110 94 Room Air (Adriana Milton, PA-C) Physical Exam General Appearance: no apparent distress, + obese Eyes: normal inspection, PERRL ENT: hearing grossly normal Neck: supple Respiratory/Chest: lungs clear, no respiratory distress, no accessory muscle use Cardiovascular: + tachycardia (rhythm regular ) Abdomen: normal bowel sounds, non tender, soft Extremities: no pedal edema, no calf tenderness Neurologic/Psychiatric: alert, normal mood/affect, oriented x 3 Skin: normal color, warm/dry, + pertinent finding (multiple skins lesions to bilateral upper/lower extremities- no warmth, excessive erythema, or drainage noted ) (Adriana Milton ., PA-C) Laboratory Results Last 24 Hours Test 05/13/17 20:48 05/13/17 20:58 05/13/17 21:25 05/13/17 23:55 White Blood Count 7.26 K/uL Red Blood Count 5.77 M/uL Hemoglobin 16.8 g/dL Hematocrit 50.0 % Mean Corpuscular Volume 86.7 fL Mean Corpuscular Hemoglobin 29.1 pg Mean Corpuscular Hemoglobin Concent 33.6 g/dl Platelet Count 194 K/uL Mean Platelet Volume 9.0 fL Neutrophils (%) (Auto) 85.1 % Lymphocytes (%) (Auto) 9.6 % Monocytes (%) (Auto) 4.7 % Eosinophils (%) (Auto) 0.0 % Basophils (%) (Auto) 0.3 % Neutrophils # (Auto) 6.18 K/uL Lymphocytes # (Auto) 0.70 K/uL Monocytes # (Auto) 0.34 K/uL Eosinophils # (Auto) 0.00 K/uL Basophils # (Auto) 0.02 K/uL RDW Standard Deviation 40.2 fL RDW Coefficient of Variation 12.6 % Immature Granulocyte % (Auto) 0.3 % Immature Granulocyte # (Auto) 0.02 K/uL Prothrombin Time 11.2 SECONDS Prothromb Time International Ratio 1.0 Sodium Level 135 mmol/L Potassium Level 4.1 mmol/L Chloride Level 101 mmol/L Carbon Dioxide Level 25 mmol/L Anion Gap 9.0 mmol/L Blood Urea Nitrogen 12 mg/dl Creatinine 1.20 mg/dl Est Creatinine Clear Calc Drug Dose 96.0 ml/min Estimated GFR () 83.0 Estimated GFR (Non- 71.6 BUN/Creatinine Ratio 10.3 Random Glucose 91 mg/dl Lactic Acid Level 1.0 mmol/L Calcium Level 8.8 mg/dl Magnesium Level 2.3 mg/dl Total Bilirubin 1.3 mg/dl Aspartate Amino Transf (AST/SGOT) 34 U/L Alanine Aminotransferase (ALT/SGPT) 51 U/L Alkaline Phosphatase 81 U/L Total Creatine Kinase 116 U/L Troponin I < 0.015 ng/ml Total Protein 7.9 gm/dl Albumin 3.8 gm/dl Globulin 4.1 gm/dl Albumin/Globulin Ratio 0.9 Lipase 109 U/L Thyroid Stimulating Hormone (TSH) 2.010 uIu/ml Monoscreen NEG Lyme Disease IgG Antibody POS Lyme Disease IgM Antibody NEG Influenza Type A Antigen Neg for Influ A Influenza Type B Antigen Neg for Influ B Urine Color DK YELLOW Urine Appearance CLEAR Urine pH 5.5 Urine Specific [place] 1.019 Urine Protein TRACE Urine Glucose (UA) NEG Urine Ketones 3+ Urine Occult Blood NEG Urine Nitrite NEG Urine Bilirubin NEG Urine Urobilinogen NEG Urine Leukocyte Esterase NEG Urine WBC (Auto) 1-5 /hpf Urine RBC (Auto) 0-4 /hpf Urine Hyaline Casts (Auto) 0 /lpf Urine Epithelial Cells (Auto) 0-5 /lpf Urine Bacteria (Auto) NEG Test 05/14/17 05:40 (Adriana Milton, CINDYC) Assessment and Plan The patient is a 47-year-old male who presents to the emergency department with complaint of generalized weakness, muscle aches, and headache that began about 4 days ago when he was outside in the sun for about 30-60 minutes. His past medical history includes some question of a "partial diagnosis of [place] disease". He reports it is very sensitive to electrolyte changes and tries to watch himself closely with taking magnesium and calcium supplements. He decided come to emergency department today because he had a temperature which initially was 99.9, then 1 day ago increased 101.7, and then today increased to 101.9 and then 102.8 just prior to arrival. Today he reports the development of additional symptoms including a tickle in his throat, and irritant cough, a right earache, nausea and loose stools. He reports having multiple mosquito bites 4 days ago, and has had a tick bite in the past. He has not had any recent travel and denies any sick contacts. SIRS w/ fever, tachycardia, and tachypnea/Lyme IgG positive: - Admit to tele for cardiac monitoring- sinus tachycardia - IV NS with potassium chloride 20 mEq at 200 mils per hour- decrease to 125 ml/ hr - BCx pending - Lyme western blot pending - Pending Ehrlichiosis, EBV, CMV, parvovirus, coxsackie B virus and West Nile virus - Admitted on Ceftriaxone 1 g IV daily- d/c'd and started on Doxycycline 100 mg BID - Admitted on Bactrim BID- ?due to multiple skin lesions- no infectious lesions noted on physical exam, will d/c Sinus tachycardia: - Electrolytes and TSH WNL - IVF - Lopressor 5 mg IV every q4 hrs PRN HTN, ?secondary to acute illness/anxiety vs chronic issue: - Continue to monitor- may need BP medication - IV Lopressor as above DVT Prophylaxis: Ambulation Code Status: LEVEL I, FULL Dispo: Discharge to home once medically stable, likely within the next 1-2 days (Adriana Milton, ONESIMO) I personally examined pt and verified all fine points w Berto Milton PA-C feeling feverish and achy all over scratchy throat, not a lot of other focal symptoms. tick bites and mosquito bites. no STD/hepatitis risks - d/w pt. ROS otherwise negative except for as above vitals noted fatigued appearing no pallor or icterus no respiratory distress febrile illness -main ddx at this point appearing viral vs tick borne. (with recurrent high fevers pattern would fit for legionares as far as temps but totally lacks the respiratory symptoms) -will hold off on viral titers since it wouldn't belt changer and titers would not be back until next week - which for those tests the clinical illness would almost certainly have resolved before labs would confirm. no s/s encephalitis either. only ~16 reported [place] cases in [place] in 2016 and again would not belt changer) -lyme IgG positive IgM negative but also recent onset of illness so IgG may be old or false positive and IgM may just not have come positive yet. clinical picture as far as fevers and body aches also fits with anaplasmosis, which we' ve been seeing a lot of in the area, but labs do not (CBC normal, LFTs normal) -d/w pt given endemic area, and fits well with picture - empiric doxy - benefits appear to outweigh the risks - he agrees -otherwise as above (Lance Barreto D.O.)
[2017-05-14] MEDS ORDERED: SODIUM CHLORIDE 0.9% 1000ML 1,000 ML IV SCH (14:30)
[2017-05-14] MEDS ORDERED: NURSING VERBAL MED ORDER ONE (14:30)
[2017-05-15] VITALS (7 sets, daily range): BP systolic 118–160; BP diastolic 71–92; PULSE 85–93; TEMP 36.9–37.3; O2SAT 93–96
[2017-05-15] MEDS: NSS + 20MEQ KCL 1000ML 1,000 ML IV SCH ×2 (00:25→08:36)
[2017-05-15] MEDS: MAGNESIUM OXIDE 400 MG TAB PO SCH (07:53)
[2017-05-15] MEDS: DOXYCYCLINE HYCLATE 100 MG CAP PO SCH (07:53)
[2017-05-15] MEDS: CALCIUM 600MG + VIT D 400 IU TAB PO SCH (07:53)
[2017-05-15 07:59] LABS: BASO % 0.9 %; BASO ABS # 0.06 K/uL (0-0.2); COMPLETE YES; IG% 0.3 %; LYMPH % 16.7 %; LYMPH ABS # 1.15 K/uL (1.2-3.4); MEAN CELL VOLUME 87.1 fL (80-100); MEAN CORPUSCULAR HEMOGLOBIN 29.4 pg (25-34); MEAN CORPUSCULAR HGB CONC 33.7 g/dl (32-36); MEAN PLATELET VOLUME 9.1 fL (7.4-10.4); MONO % 10.6 %; NEUT % 70.5 %; PLATELET COUNT 173 K/uL (130-400); RED BLOOD COUNT 5.28 M/uL (4.7-6.1); WHITE BLOOD COUNT 6.89 K/uL (4.8-10.8)
[2017-05-15 08:09] LABS: PARTIAL THROMBOPLASTIN RATIO 1.2; PROTHROMBIN TIME (PATIENT) 10.9 SECONDS (9.0-12.0)
[2017-05-15 08:33] LABS: BUN/CREATININE RATIO 11.8 (10-20); CALCIUM 8.4 mg/dl (8.5-10.1); CREATININE 0.98 mg/dl (0.60-1.40); MAGNESIUM 2.6 mg/dl (1.8-2.4); POTASSIUM 4.4 mmol/L (3.5-5.1)
[2017-05-15] MEDS ORDERED: MAGN250T8 PO (11:37)
[2017-05-15] MEDS ORDERED: DXY100 PO (11:37)
--- NOTE | 2017-05-15 11:42 | Discharge Instructions ---
Discharge Instructions Date of Service May 15, 2017. Admission Reason for Admission: Dehydration, Sirs Discharge Discharge Diagnosis / Problem: Dehydration; Questionable lyme disease Discharge Goals Goal(s): Decrease discomfort, Learn about illness, Diagnostic testing, Therapeutic intervention, Prevent Disease Progression Activity Recommendations Activity Limitations: resume your previous activity . Instructions / Follow-Up Instructions / Follow-Up New/changed medications: 1. Doxycycline 100 mg by mouth twice per day until prescription is complete This medication is an antibiotics used to treat Lyme disease- result will be forwarded to your PCP The confirmation Lyme disease test is still pending at this time Please eat with this medication to prevent upset stomach 2. It is recommended you DECREASE your Magnesium supplement to once daily This recommendation is because your magnesium level is in the normal/high range Continue all other regular home medications as prescribed to you Continue to drink plenty of fluids to maintain hydration It is recommended you log your blood pressures 1-2 times per day until follow- up with PCP. This log will further help PCP to determine if blood pressure management is indicated. Please follow-up with your PCP on May 22 at 3:00 PM Please follow-up/keep all of your subspecialty appointments Current Hospital Diet Patient's current hospital diet: Regular Diet, Gluten Free Diet Discharge Diet Recommended Diet: Gluten Free Diet Procedures Procedures Performed: Abdominal CT Chest x-ray Pending Studies Studies pending at discharge: yes List of pending studies: Western blot Laboratory Results Last 24 Hours Test 05/15/17 07:43 05/15/17 07:44 Prothrombin Time 10.9 SECONDS Prothromb Time International Ratio 1.0 Activated Partial Thromboplast Time 31.2 SECONDS Partial Thromboplastin Ratio 1.2 White Blood Count 6.89 K/uL Red Blood Count 5.28 M/uL Hemoglobin 15.5 g/dL Hematocrit 46.0 % Mean Corpuscular Volume 87.1 fL Mean Corpuscular Hemoglobin 29.4 pg Mean Corpuscular Hemoglobin Concent 33.7 g/dl Platelet Count 173 K/uL Mean Platelet Volume 9.1 fL Neutrophils (%) (Auto) 70.5 % Lymphocytes (%) (Auto) 16.7 % Monocytes (%) (Auto) 10.6 % Eosinophils (%) (Auto) 1.0 % Basophils (%) (Auto) 0.9 % Neutrophils # (Auto) 4.86 K/uL Lymphocytes # (Auto) 1.15 K/uL Monocytes # (Auto) 0.73 K/uL Eosinophils # (Auto) 0.07 K/uL Basophils # (Auto) 0.06 K/uL RDW Standard Deviation 42.0 fL RDW Coefficient of Variation 13.1 % Immature Granulocyte % (Auto) 0.3 % Immature Granulocyte # (Auto) 0.02 K/uL Sodium Level 140 mmol/L Potassium Level 4.4 mmol/L Chloride Level 111 mmol/L Carbon Dioxide Level 20 mmol/L Anion Gap 9.0 mmol/L Blood Urea Nitrogen 12 mg/dl Creatinine 0.98 mg/dl Est Creatinine Clear Calc Drug Dose 118.0 ml/min Estimated GFR () 106.0 Estimated GFR (Non- 91.4 BUN/Creatinine Ratio 11.8 Random Glucose 81 mg/dl Calcium Level 8.4 mg/dl Magnesium Level 2.6 mg/dl Work Instructions Additional Instructions: May return to work on Saturday Medical Emergencies . Who to Call and When: Medical Emergencies: If at any time you feel your situation is an emergency, please call 911 immediately. . Non-Emergent Contact Non-Emergency issues call your: Primary Care Provider . . "Provider Documentation" section prepared by Adriana Milton. . VTE Core Measure Inpt VTE Proph given/why not?: SCD's
--- NOTE | 2017-05-15 11:51 | Discharge Summary ---
Discharge Summary Date of Service May 15, 2017. (Adriana Milton PA-C) Discharge Summary Admission Date: May 14, 2017 at 02:34 Discharge Date: May 15, 2017 Discharge Disposition: Home Principal Diagnosis: ?lyme disease; SIRS; dehydration Problems/Secondary Diagnoses: SIRS w/ fever, tachycardia, and tachypnea, ?viral vs tick borne/Lyme IgG positive Sinus tachycardia HTN Procedures: CHEST 2 VIEWS ROUTINE HISTORY: cough, fever COMPARISON: None. FINDINGS: The lungs are clear. Cardiac silhouette is normal in size. No pleural effusions. No pneumothorax. IMPRESSION: No acute process. Electronically signed by: Adama Asencio M.D. 05/13/2017 9:30 PM Dictated Date/Time: 05/13/2017 9:28 PM The status of this report is Signed. Draft = Not yet reviewed or approved by Radiologist. Signed = Reviewed and approved by Radiologist. CT SCAN OF THE ABDOMEN AND PELVIS WITH IV CONTRAST CLINICAL HISTORY: Generalized abdominal pain. Fever. COMPARISON STUDY: No priors. TECHNIQUE: Following the IV administration of 117 cc of Optiray 320, CT scan of the abdomen and pelvis is performed from the lung bases to the proximal femora. Images are reviewed in the axial, sagittal, and coronal planes. IV contrast was administered without complication. Automated dose control exposure was utilized. CT DOSE: 1247.37 mGy.cm FINDINGS: Lung bases: The heart is normal in size and without pericardial effusion. The lung bases are clear noting bibasilar atelectasis. Liver: The contrast-enhanced liver is enlarged, measuring 21.2 cm in length. The liver demonstrates diffusely diminished attenuation consistent with hepatic steatosis. Fatty sparing is seen adjacent to gallbladder fossa. There is no intrahepatic biliary ductal dilatation. The hepatic veins and portal veins are patent. Gallbladder: Unremarkable. Spleen: Normal in size and attenuation. Pancreas: Unremarkable. Adrenal glands: Unremarkable. Kidneys: The contrast enhanced kidneys are normal in size and without hydronephrosis. The kidneys enhance symmetrically. Abdominal vasculature: The abdominal aorta is normal in course and caliber. Bowel: The small bowel and colon are normal in course and caliber. The appendix is not identified and reported surgically absent. Peritoneum: There is no intraperitoneal free air or abdominal ascites. There is a small fat-containing umbilical hernia. Lymphadenopathy: None. Pelvic viscera: The bladder, prostate, and seminal vesicles are normal as visualized. Skeletal structures: No lytic or blastic lesions are seen. IMPRESSION: 1. There are no acute infectious or inflammatory findings in the abdomen or pelvis. 2. Hepatomegaly and hepatic steatosis. Electronically signed by: Madhu Miranda M.D. 05/14/2017 8:06 AM Dictated Date/Time: 05/14/2017 8:03 AM The status of this report is Signed. Draft = Not yet reviewed or approved by Radiologist. Signed = Reviewed and approved by Radiologist. (Adriana Milton PA-C) Medication Reconciliation New Medications: Doxycycline Hyclate (Doxycycline Hyclate) 100 Mg Cap 100 MG PO BID for 13 Days, #26 CAP Changed Medications: Magnesium Oxide (Mg Supplement (Magnesium) 250 Mg Tab 250 MG PO DAILY for 30 Days (Changed from: BID) Continued Medications: Calcium Carbonate-Cholecalcife (Calcium 600+D3 600-800 mg-Unit) 1 Tab Tab 1 TAB PO DAILY Discharge Exam Review of Systems: Constitutional: + weakness, No fever, No chills, No sweats, No fatigue ENT: No hearing loss Respiratory: No cough, No shortness of breath, No hemoptysis Cardiovascular: No chest pain, No edema, No palpitations Abdomen: No pain, No nausea, No vomiting, No diarrhea, No constipation Musculoskeletal: + muscle pain (cervical spine and bilateral lateral lumbar spine ), No joint pain, No swelling, No calf pain Genitourinary - Male: No hematuria, No dysuria Neurologic: No numbness/tingling Psychiatric: No depression symptoms, No anxiety Hematologic / Lymphatic: No abnormal bleeding/bruising Integumentary: No rash, No itch, No new/changing skin lesions Physical Exam: General Appearance: no apparent distress Eyes: normal inspection, PERRL ENT: hearing grossly normal Neck: supple Respiratory/Chest: lungs clear, no respiratory distress, no accessory muscle use Cardiovascular: regular rate, rhythm Abdomen / GI: normal bowel sounds, non tender, soft Extremities: no calf tenderness, no pedal edema, + pertinent finding ( cervical spine tenderness/tightness to palpation and with movement; NO decreased ROM ) Neurologic/Psychiatric: alert, normal mood/affect, oriented x 3 Skin: normal color, warm/dry, no rash (Adriana Milton PA-C) Hospital Course H&P on admission: The patient is a 47-year-old male who presents to the emergency department with complaint of generalized weakness, muscle aches, and headache that began about 4 days ago when he was outside in the sun for about 30 -60 minutes. His past medical history includes some question of a "partial diagnosis of [place] disease". He reports it is very sensitive to electrolyte changes and tries to watch himself closely with taking magnesium and calcium supplements. He decided come to emergency department today because he had a temperature which initially was 99.9, then 1 day ago increased 101.7, and then today increased to 101.9 and then 102.8 just prior to arrival. Today he reports the development of additional symptoms including a tickle in his throat , and irritant cough, a right earache, nausea and loose stools. He reports having multiple mosquito bites 4 days ago, and has had a tick bite in the past. He has not had any recent travel and denies any sick contacts. Physical Exam Vital Signs Date Time Temp Pulse Resp B/P (MAP) Pulse Ox O2 Delivery O2 Flow Rate FiO2 05/14/17 02:12 37.4 05/14/17 00:51 102 17 95 05/14/17 00:36 104 16 96 05/14/17 00:34 106 05/14/17 00:31 170/108 05/14/17 00:21 106 25 96 05/14/17 00:06 105 16 97 05/14/17 00:01 177/107 05/13/17 23:51 112 19 180/110 95 05/13/17 23:30 185/114 05/13/17 23:26 120 19 185/114 95 Room Air 05/13/17 23:21 117 20 96 05/13/17 23:06 118 29 96 05/13/17 23:01 211/117 05/13/17 22:51 117 27 99 05/13/17 22:36 114 25 99 05/13/17 22:31 204/117 05/13/17 22:21 114 38 100 05/13/17 22:09 39.3 05/13/17 22:06 114 25 99 05/13/17 22:01 199/118 05/13/17 21:58 112 29 100 05/13/17 21:35 116 20 191/115 97 Room Air 05/13/17 21:34 191/115 05/13/17 20:59 120 05/13/17 20:59 119 20 190/110 97 Room Air 05/13/17 20:57 190/110 05/13/17 19:52 39.1 133 20 205/110 94 Room Air The patient is awake, well-developed and adequately nourished, alert and oriented 3, normocephalic and atraumatic, lying in bed and in no acute distress. HEENT--PERRL, EOMI, mucous membranes and oropharynx normal. Neck--supple, no JVD or bruits, thyroid normal, trachea midline, no adenopathy. Heart--normal S1 and S2, no extra beats, no murmurs, rubs or gallops. Lungs--clear bilaterally with good air movement, no respiratory distress, no accessory muscle use. Abdomen--normal bowel sounds and soft, nontender and nondistended, no hernias or masses, no organomegaly. Extremities--no cyanosis, clubbing or edema. There are good distal pulses b/l. Dermatologic--normal skin turgor, normal color, warm and dry, no abnormal lymph nodes. He has a number of 5-10 mm oval erythematous areas lower extremities and upper extremities. Neurologic--cranial nerves II through XII grossly intact. Rheumatologic--normal range of motion, nontender, muscles and joints. Psychiatric--appears anxious. SIRS w/ fever, tachycardia, and tachypnea, ?viral vs tick borne- RESOLVED/Lyme IgG positive: - Admit to [facility] for cardiac monitoring- sinus tachycardia - IV NS with potassium chloride 20 mEq at 200 mils per hour- decreased to 125 ml /hr - BCx- NGTD - Lyme western blot pending - Admitted on Ceftriaxone 1 g IV daily- d/c'd and started on Doxycycline 100 mg BID x14 days - Admitted on Bactrim BID- ?due to multiple skin lesions- no infectious lesions noted on physical exam, will d/c Dr. Barreto discussion w/ patient: Legionaries as far as temps but lacks the respiratory symptoms. Held off on viral titers since it wouldn't change attendant and titers would not be back until next week- which for those tests the clinical illness would almost certainly have resolved before labs would confirm. Risk/benefits of Doxycycline discussed and patient agrees w/ empiric antibiotic treatment. Sinus tachycardia- RESOLVED: - Electrolytes and TSH WNL - IVF - Lopressor 5 mg IV every q4 hrs PRN HTN, ?secondary to acute illness/anxiety vs chronic issue- IMPROVED: - Continue to monitor- may need BP medication - IV Lopressor as above - Blood pressures were elevated at admission, but continued to improve to borderline HTN- recommended patient log bps 1-2 times per day and f/u with PCP DVT Prophylaxis: Ambulation Code Status: LEVEL I, FULL Dispo: Discharge to home Total Time Spent: Greater than 30 minutes This includes examination of the patient, discharge planning, medication reconciliation, and communication with other providers. (Adriana Milton, PA-C) I personally examined pt and verified all fine points w Berto Milton PA-C fever gone, feeling better just still washed out. ROS otherwise negative except for as above vitals noted nad breathing unlabored no pallor or icterus febrile illness - tick borne > viral. empiric treatment required due to severity of illness and inaccuracy of labs in some tick borne illnesses such as anaplasmosis (which has been surprisingly prevalent here this year) -stable for home - 2wks of doxy; PCP f/u -ongoing evaluation on ?adrenal issues vs autoimmune issues (Lance Barreto D.O.) Discharge Instructions Please refer to the electronic Patient Visit Report (Discharge Instructions) for additional information. (Adriana Milton, DEMARCO-C) Follow-Up Please follow-up with your PCP within 5-7 days Please follow-up/keep all of your subspecialty appointments (Adriana Mitlon, CINDYC) Additional Copies To Hayley Mcdaniels M.D.
[2017-05-16 15:22] LABS: 18KDIGG BAND NONREACTIVE (NONREACTIVE); 23KDIGG BAND NONREACTIVE (NONREACTIVE); 23KDIGM BAND NONREACTIVE (NONREACTIVE); 28KDIGG BAND NONREACTIVE (NONREACTIVE); 30KDIGG BAND NONREACTIVE (NONREACTIVE); 39KDIGG BAND NONREACTIVE (NONREACTIVE); 39KDIGM BAND NONREACTIVE (NONREACTIVE); 41KDIGG BAND NONREACTIVE (NONREACTIVE); 41KDIGM BAND NONREACTIVE (NONREACTIVE); 45KDIGG BAND NONREACTIVE (NONREACTIVE); 58KDIGG BAND NONREACTIVE (NONREACTIVE); 66KDIGG BAND NONREACTIVE (NONREACTIVE); 93KDIGG BAND NONREACTIVE (NONREACTIVE)
== END 2017-05-15 12:51 | disposition home or self-care (01) | DRG 872 ==
LOC: C.EDB 19:29 → C.2T 05-14 02:34 → ENRESERV 05-14 03:07
PROVIDERS: ADMIT Hospitalist; ATTEND Family Medicine
DX: A41.9 Sepsis, unspecified organism (principal); A69.20 Lyme disease, unspecified; E86.0 Dehydration; I10 Essential (primary) hypertension; M81.0 Age-related osteoporosis without current pathological fracture; R00.0 Tachycardia, unspecified

== ENCOUNTER 2017-11-17 13:33 | Emergency (ER) | payer OTHER ==
[~2017-11-17] VITALS: Ht 172.7 cm; Wt 114.0 kg
[~2017-11-17 13:33] MED LIST changes: +CALC-449 PO; -CLTP PO; +DXY100 PO; +MAGN250T8 PO; -MAGN400T6 PO; -OXYC-57 PO
[2017-11-17 13:37] VITALS: Ht 172.7 cm; Wt 114.0 kg
[2017-11-17] MEDS ORDERED: KETOROLAC TROMETHAMINE 60 MG/2 ML VIAL IM STA (14:23)
[2017-11-17] MEDS ORDERED: METH4PAK PO (14:40)
--- NOTE | 2017-11-17 14:40 | EMERGENCY ROOM VISIT NOTE ---
History First contact with patient: 13:47 Chief Complaint: BACK PAIN Stated Complaint: SEVERE BACK PAIN,LOWER LEFT INTO HIP History of Present Illness The patient is a 47 year old male who presents to the Emergency Room with complaints of back pain. The patient reports he is having a back pain flareup. He has been having gradually worsening pain over the past few weeks. He states that he has had back issues in the past. He states that he typically sees his chiropractor and this helps with his back pain. He states that the pain became worse today and he sat down to have a bowel movement. The pain has been worse with weightbearing. He states it is in the left low back down the left leg. He rates the discomfort a 5/10. The patient saw his chiropractor this week with some relief of his pain. He states that several years ago, he saw Dr. Vargas and had steroid injections in the back which did help him. He has been taking ibuprofen at home for the pain. He states that the pain is a sharp , searing pain down the leg. He denies any numbness, weakness, urinary symptoms , bowel/bladder incontinence, nausea/vomiting or abdominal pain. Review of Systems A complete 10 point review of systems was reviewed with the patient with pertinent positives and negatives as per history of present illness. All else were negative. Past Medical/Surgical History Medical Problems: (1) Hypertension (2) Osteoporosis (3) SIRS (systemic inflammatory response syndrome) Surgical Problems: (1) H/O wisdom tooth extraction (2) History of appendectomy Family History Diabetes mellitus Gallbladder disease Heart disease Lung disease Social History Smoking Status: Never Smoker Drug Use: none Marital Status: single Housing Status: lives alone Current/Historical Medications Scheduled Methylprednisolone (Medrol Dosepak), 0 PO DAILY Physical Exam Vital Signs Date Time Temp Pulse Resp B/P (MAP) Pulse Ox O2 Delivery O2 Flow Rate FiO2 11/17/17 14:41 36.7 93 20 152/106 99 11/17/17 13:37 36.7 93 20 152/106 99 Room Air Physical Exam VITALS: Vitals are noted on the nurse's note and reviewed by myself. Vital signs stable. GENERAL: This is a 47-year-old male, in no acute distress, nondiaphoretic, well- developed well-nourished. SKIN: The skin was without rashes. HEART: Regular rate and rhythm without murmurs gallops or rubs. LUNGS: Clear to auscultation bilaterally without wheezes, rales or rhonchi. ABDOMEN: Soft, nontender to palpation. MUSCULOSKELETAL: No tenderness to palpation in the low back. Full range of motion and strength 5/5 in bilateral lower extremities. NEURO: Patient was alert and oriented to person place and time. Normal sensation of bilateral lower extremities. Deep tendon reflexes 2+ throughout. Medical Decision & Procedures Medications Administered Medications (Trade) Dose Ordered Sig/Bennett Route Start Time Stop Time Status Last Admin Dose Admin Ketorolac Tromethamine (Toradol Inj) 60 mg NOW STAT IM 11/17/17 14:23 11/17/17 14:24 DC 11/17/17 14:33 60 MG Medical Decision Differential diagnosis includes cauda equina syndrome, cord compression, disc herniation, muscle spasm, lumbar strain, epidural abscess, malignancy, transverse myelitis, urinary tract infection, colitis, diverticulitis, kidney stone, among others. The patient is a 47-year-old male who presents today complaining of low-back pain. Exam is unremarkable. Patient does have a history of low back pain which flares up occasionally. Nothing to suggest cauda equina syndrome on exam. Patient was treated with IM Toradol and will be placed on a Medrol Dosepak at home. He was advised to follow-up with his primary care provider as needed. Conservative measures were discussed. He will return for any numbness/ weakness of the legs, bowel/bladder dysfunction, or any other new/concerning symptoms. He verbalized understanding of my assessment and treatment plan and was discharged home in good condition. Medication Reconcilliation Current Medication List: was personally reviewed by me Blood Pressure Screening Patient's blood pressure: Elevated blood pressure Blood pressure disposition: Referred to PCP Impression Primary Impression: Lumbar radiculopathy Departure Information Dispostion Home / Self-Care Condition GOOD Prescriptions Methylprednisolone (MEDROL DOSEPAK) 4 Mg Judah 0 PO DAILY, #1 PKT Prov: Rachel Ashraf PA-C 11/17/17 Referrals Hayley Mcdaniels M.D. (PCP) Patient Instructions [facility] Additional Instructions You have been treated in the Emergency Department for Back Pain. Medrol Dosepak as prescribed. For pain control, you can use the following [id number] medicines (if >12 yo): - Regular strength (325mg/tab) Tylenol (acetaminophen) 2 tabs every 4-6 hours as needed. Do not exceed 12 tablets in a 24 hour period. Avoid taking more than 4 grams (4000 mg) of Tylenol per day. This includes any other sources of acetaminophen you may take on a regular basis. - Regular strength (200 mg/tab) Advil (ibuprofen) 1-2 tabs every 4-6 hours as needed. Do not exceed a dose of 3200 mg per day. If this is an acute injury, ice can be applied to the area of pain for the first 3 days to help decrease pain and inflammation. After the first 3 days, a heating pad can be used over the area for continued soothing relief. You should schedule a follow-up appointment in 2-3 days with your Primary Care Provider for further evaluation and treatment of your back pain. Return to the Emergency Department if your current symptoms worsen despite treatment course outlined above, or if you develop any of the following symptoms : intractable pain despite aforementioned treatment course, loss of control of your bowel or bladder, numbness or tingling in your groin, or development of a fever.
[2017-11-17 14:41] VITALS: BP 152/106; PULSE 93; TEMP 36.7; O2SAT 99
== END 2017-11-17 14:43 | disposition home or self-care (01) ==
LOC: C.EDB 13:35 → C.EDD 14:43
DX: M54.16 Radiculopathy, lumbar region (principal); I10 Essential (primary) hypertension; M81.0 Age-related osteoporosis without current pathological fracture; Z90.89 Acquired absence of other organs; Z98.818 Other dental procedure status; Z83.3 Family history of diabetes mellitus